=== PATIENT | female | born 1980 | race Caucasian/White ===

== ENCOUNTER → 2016-08-17 17:20 | Observation (INO) ==
[2016-08-17 14:20] LABS: Amphetamine Screen,Urine Positive ng/mL (Cutoff=1000); Barbiturate Screen,Urine Negative ng/mL (Cutoff=200); Benzodiazepines Screen,Urine Positive ng/mL (Cutoff=200); Cannabinoid Screen,Urine Positive ng/mL (Cutoff = 50); Cocaine Screen,Urine Negative ng/mL (Cutoff= 300); Opiate Screen,Urine Negative ng/mL (Cutoff=300); Phencyclidine Screen,Urine Negative ng/mL (Cutoff=25)
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
[2016-08-17 14:49] LABS: Hepatitis B Surface Antigen Nonreactive (Nonreactive)
[2016-08-19 09:43] LABS: HIV-1&2 Antibody & p24 Ag Nonreactive (Nonreactive)
[2016-08-19 10:12] LABS: Varicella Zoster IgG Antibody Positive
[2016-08-19 10:47] LABS: Rubella IgG Antibody POSITIVE (POSITIVE)
== END | disposition home or self-care (01) ==
LOC: 1NENULAB
PROVIDERS: ADMIT Student in an Organized Health Care Education/Training Program; ATTEND Student in an Organized Health Care Education/Training Program

== ENCOUNTER → 2016-10-23 18:00 | Observation (INO) ==
[2016-10-23 18:13] LABS: Amphetamine Screen,Urine Negative ng/mL (Cutoff=1000); Barbiturate Screen,Urine Negative ng/mL (Cutoff=200); Benzodiazepines Screen,Urine Negative ng/mL (Cutoff=200); Cannabinoid Screen,Urine Negative ng/mL (Cutoff = 50); Cocaine Screen,Urine Negative ng/mL (Cutoff= 300); Opiate Screen,Urine Negative ng/mL (Cutoff=300); Phencyclidine Screen,Urine Negative ng/mL (Cutoff=25)
[2016-10-23 18:25] LABS: Trichomonas DNA Not Detected (Not Detect)
[2016-10-23 18:26] LABS: Candida DNA Not Detected (Not Detect); Gardnerella DNA Not Detected (Not Detect)
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
== END | disposition left against medical advice (07) ==
LOC: 1NENULAB
PROVIDERS: ADMIT Obstetrics & Gynecology; ATTEND Obstetrics & Gynecology

== ENCOUNTER 2021-05-22 15:17 | Observation (INO) ==
[2021-05-22] MEDS ORDERED: *HR* LORazepam 2 MG/ML VIAL IVP STA ×2 (15:46→17:03)
[2021-05-22] MEDS ORDERED: *HR* LORazepam 2 MG/ML VIAL ONE (16:59)
[2021-05-22] MEDS ORDERED: 0.9 % Sodium Chloride 1,000 ML IVC ONE (17:11)
[2021-05-22] MEDS ORDERED: levETIRAcetam 1,000 MG in 0.9 % Sodium Chloride 100 ML IVPB ONE (17:17)
[2021-05-22 17:43] LABS: Amphetamine Screen,Urine Positive ng/mL (Cutoff=1000); Barbiturate Screen,Urine Negative ng/mL (Cutoff=200); Benzodiazepines Screen,Urine Negative ng/mL (Cutoff=200); Cannabinoid Screen,Urine Negative ng/mL (Cutoff = 50); Cocaine Screen,Urine Positive ng/mL (Cutoff= 300); Opiate Screen,Urine Positive ng/mL (Cutoff=300); Phencyclidine Screen,Urine Negative ng/mL (Cutoff=25)
[2021-05-22 18:08] LABS: Basophils % 0.3 %; Eosinophils % 0.1 %; Hemoglobin 12.9 g/dL (11.5-15.4); Immature Granulocytes % 0.5 % (0-4); Lymphocytes # 1.1 K/mcL (0.6-4.6); Lymphocytes % 7.9 %; Mean Corpuscular HGB Conc 33.1 g/dL (31.6-35.5); Mean Corpuscular Volume 81.8 fL (83.0-100.0); Monocytes # 0.2 K/mcL (0.0-1.3); Monocytes % 1.3 %; Platelet Count 286 K/mcL (140-400); Red Blood Count 4.77 M/mcL (3.82-4.97); Red Cell Distribution Width 14.5 % (11.5-14.5); Segmented Neutrophils % 89.9 %; White Blood Count 13.3 K/mcL (4.3-11.1)
[2021-05-22 18:30] LABS: Alanine Aminotransferase 14 Units/L (7-52); Albumin/Globulin Ratio 1.5 (1.1-2.2); Alkaline Phosphatase 54 Units/L (34-104); Aspartate Amino Transferase 20 Units/L (13-39); BUN/Creatinine Ratio 18 (6-26); Bilirubin,Total 0.3 mg/dL (0.3-1.0); Blood Urea Nitrogen 14 mg/dL (6-20); Calcium 9.2 mg/dL (8.6-10.3); Carbon Dioxide 23 mEq/L (23-29); Chloride 103 mEq/L (98-107); Globulin 2.7 g/dL (2.4-3.5); Glucose 106 mg/dL (70-105); Magnesium 1.9 mg/dL (1.6-2.6); Osmolality,Calculated 285 (280-300); Phosphorous 1.2 mg/dL (2.7-4.5); Potassium 3.7 mEq/L (3.5-5.1); Sodium 137 mEq/L (136-145); Total Protein 6.7 g/dL (6.4-8.9); eGFR For African Americans > 60 (> 60); eGFR For Non-African Americans > 60 (> 60)
[2021-05-22 20:37] LABS: Bacteria,Urine Few per hpf (None-Few); Bilirubin,Urine Negative (Negative); Blood,Urine Trace (Negative); Clarity,Urine Clear (Clear); Color,Urine Light-Yellow (Yellow); Glucose,Urine (UA) Normal (Normal); Hyaline Casts,Urine Few per lpf (None Seen); Ketones,Urine Trace mg/dL (Negative); Leukocyte Esterase,Urine Moderate (Negative); Mucus,Urine Few per lpf (None-Few); Nitrite,Urine Negative (Negative); PH,Urine 6.5 pH Units (5.0-8.0); Protein,Urine Trace mg/dL (Neg-Trace); Specific Gravity,Urine 1.024 (1.010-1.025); Squamous Epithelial Cell,Urine Few per hpf (None-Few); Urobilinogen,Urine Normal (Normal)
[2021-05-22] MEDS ORDERED: Ondansetron 4 MG/2 ML VIAL IVP PRN (23:06)
[2021-05-22] MEDS ORDERED: Acetaminophen 325 MG TABLET PO PRN (23:06)
[2021-05-22] MEDS ORDERED: Naloxone 0.4 MG/ML INJ IVP PRN (23:06)
[2021-05-22] MEDS ORDERED: Melatonin 3 MG TABLET PO PRN (23:06)
[2021-05-22] MEDS ORDERED: Potassium Phosphate 44 MEQ in 0.9 % Sodium Chloride 250 ML IVPB ONE (23:07)
[2021-05-22] MEDS: 0.9 % Sodium Chloride 1,000 ML IVC SCH (23:47)
[2021-05-23] MEDS: lamoTRIgine 25 MG TABLET PO SCH ×2 (01:02→13:41)
[2021-05-23] MEDS ORDERED: Nicotine 21 MG PATCH.TD24 TD PRN (04:07)
[2021-05-23] MEDS ORDERED: Gadolinium Contrast Agent (WT Based) IV PRN (04:15)
[2021-05-23] MEDS: 0.9 % Sodium Chloride 1,000 ML IVC SCH (06:34)
[2021-05-23 06:38] LABS: Basophils % 0.3 %; Eosinophils # 0.1 K/mcL (0.0-0.6); Eosinophils % 0.6 %; Hematocrit 36.9 % (35.3-44.9); Hemoglobin 12.2 g/dL (11.5-15.4); Immature Granulocytes % 0.3 % (0-4); Lymphocytes # 3.4 K/mcL (0.6-4.6); Lymphocytes % 35.4 %; Mean Corpuscular HGB Conc 33.1 g/dL (31.6-35.5); Mean Corpuscular Hemoglobin 27.4 pg (28.0-33.3); Mean Corpuscular Volume 82.9 fL (83.0-100.0); Mean Platelet Volume 10.6 fL (9.4-12.4); Monocytes # 0.5 K/mcL (0.0-1.3); Monocytes % 4.9 %; Neutrophils # 5.5 K/mcL (1.6-8.9); Platelet Count 276 K/mcL (140-400); Red Blood Count 4.45 M/mcL (3.82-4.97); Red Cell Distribution Width 14.8 % (11.5-14.5); Segmented Neutrophils % 58.5 %; White Blood Count 9.5 K/mcL (4.3-11.1)
[2021-05-23 06:45] LABS: INR 1.1; Prothrombin Time 11.7 Seconds (9.4-12.1)
[2021-05-23 06:46] LABS: Activated Partial Thrombo Time 28.9 Seconds (26.0-36.0)
[2021-05-23 06:52] VITALS: TEMP 98
[2021-05-23 07:04] LABS: Alanine Aminotransferase 11 Units/L (7-52); Albumin 3.6 g/dL (3.5-5.7); Albumin/Globulin Ratio 1.6 (1.1-2.2); Alkaline Phosphatase 49 Units/L (34-104); Aspartate Amino Transferase 16 Units/L (13-39); BUN/Creatinine Ratio 16 (6-26); Bilirubin,Total 0.3 mg/dL (0.3-1.0); Blood Urea Nitrogen 10 mg/dL (6-20); Calcium 8.4 mg/dL (8.6-10.3); Carbon Dioxide 24 mEq/L (23-29); Chloride 107 mEq/L (98-107); Globulin 2.2 g/dL (2.4-3.5); Glucose 88 mg/dL (70-105); Magnesium 1.9 mg/dL (1.6-2.6); Osmolality,Calculated 286 (280-300); Phosphorous 3.6 mg/dL (2.7-4.5); Potassium 3.6 mEq/L (3.5-5.1); Sodium 139 mEq/L (136-145); Total Protein 5.8 g/dL (6.4-8.9); Troponin I < 0.03 ng/mL (< 0.04); eGFR For African Americans > 60 (> 60); eGFR For Non-African Americans > 60 (> 60)
[2021-05-23 11:10] VITALS: O2SAT 100
[2021-05-23 11:11] VITALS: BP 111/50; PULSE 95
[2021-05-23] MEDS ORDERED: GADOBUTROL 30 MMOL/30 ML VIAL IVP ONE (11:43)
== END 2021-05-23 13:58 | disposition left against medical advice (07) ==
LOC: 3NENU 15:17 → EMEROOARM 15:17 → SUATTDRO 21:55 → 3NENU 23:02
PROVIDERS: ADMIT Internal Medicine; ATTEND Family Medicine